=== PATIENT | male | born 1950 | race Caucasian/White ===

== ENCOUNTER → 2020-08-09 | Outpatient (CLI) | payer MEDICARE ==
--- NOTE | 2020-08-09 17:53 | CARDNUC ---
[place] [address] CARDIAC NUCLEAR IMAGING REPORT Name: YOU SWAN Room: [facility]#: [id number] Admission: 08/09/20 Attend Phys: Florence Guaman, Discharge: Date of : 54 Date of Service: 08/09/20 1753 Report #: [id number] THIS REPORT FOR: cc: JAC MORILLO PA-C, MASON PA-C Liston, Michael J. MD [facility] ~ APPROVED REPORT Imaging Protocol: Stress Tc-99m/Rest Tc-99m 1 day Study performed: 08/09/2020 09:38:38 Indication: Abnormal EKG, Chest pain Patient Location: Out-Patient Stress Tech: Maite Potts Stress Nurse: Tricia Garcia RN Ht: 6 ft 2 in Wt: 207 lbs BSA: 2.21 m2 BMI: 26.57 Medical History Medical History: Diabetes, HTN Medications: lisinopril Allergies: nkda Cardiac Risk Factors: Age, HTN, DM, FHX of CAD Exercise History: Physically active Resting Data Rest SPECT myocardial perfusion imaging was performed in supine position 30 minutes following the intravenous injection of 10.4 mCi of Tc-99m Sestamibi. Time of rest injection: 08:25 The images were gated to evaluate regional wall motion and calculate left ventricular ejection fraction. Administration Route: IV Administration Site: Left Wrist Exercise Stress At peak stress, the patient was injected intravenously with 31.2mCi of Tc-99m Sestamibi. Time of stress injection: 10:10 Administration Route: IV Administration Site: Left Wrist Heart Rate at time of stress injection: 138 bpm. Patient continued to exercise for 1 minute([place] [address] CARDIAC NUCLEAR IMAGING REPORT Name: YOU SWAN Room: [facility]#: [id number] Admission: 08/09/20 Attend Phys: Florence Guaman, Discharge: Date of : 54 Date of Service: 08/09/20 1753 Report #: [id number] Gated Stress SPECT was performed 30 minutes after stress injection. The images were gated to evaluate regional wall motion and calculate left ventricular ejection fraction. Prone imaging was performed. Stress Test Details Stress Test: Exercise stress testing was performed using a Donell protocol. HR Max Heart Rate (APMHR): 153 bpm Resting HR: 71 bpm Target HR (85% APMHR): 130 bpm Max HR Achieved: 141 bpm % of APMHR: 92 Recovery HR: 99 bpm BP Resting BP: 161/72 mmHg Max BP: 238/82 mmHg Recovery BP: 177/95 mmHg ECG Resting ECG: Sinus Rhythm Stress ECG: Sinus Tachycardia ST Change: None Arrhythmia: None Recovery ECG: Sinus Rhythm Recovery ST Change: None Recovery Arrhythmia: None Clinical Reason for Termination: Chest pain/Anginal equivalent, Dyspnea, Fatigue Exercise duration: 6 min 29 sec Exercise capacity: 7.79 METs Overall Exercise Capacity for Age: Reduced Functional Aerobic Impairment 92% The patient describes midsternal chest discomfort with standard Donell protocol exercise that resolved with rest. Nurse Comments pt co chest pain at end of test. Resolved with rest Stress ECG Conclusion The baseline twelve-lead EKG shows sinus rhythm without significant ST segment or T wave abnormality. EKGs obtained during and post exercise show sinus rhythm and sinus tachycardia with [address] [place] [address] CARDIAC NUCLEAR IMAGING REPORT Name: YOU SWAN Josefina Room: [facility]#: [id number] Admission: 08/09/20 Attend Phys: Florence Guaman, Discharge: Date of : 54 Date of Service: 08/09/20 1753 Report #: [id number] depression noted in the inferolateral leads that resolves within 30 minutes in recovery. Study Quality Study: Good Artifact: No artifact Study Data At rest, the left ventricular ejection fraction was 67%.. Post stress, the left ventricular ejection was 62%.. Perfusion Perfusion images show a moderate size moderate to severe intensity reversible defect involving the distal anterior wall and apex. Wall Motion Gated images show apical hypokinesis. Nuclear Conclusion ECG Findings: positive for ischemia Clinical Findings: positive for ischemia Nuclear Findings: positive for ischemia Exercise Capacity: Mildly reduced Left Ventricular Function: Preserved Risk Study: high Perfusion images suggest stress-induced ischemia of the distal anterior wall and apex. Global LV systolic function preserved. This is a high risk study. <Conclusion> The baseline twelve-lead EKG shows sinus rhythm without significant ST segment or T wave abnormality. EKGs obtained during and post exercise show sinus rhythm and sinus tachycardia with [address] segment depression noted in the inferolateral leads that resolves within 30 minutes in recovery. <ELECTRONICALLY SIGNED> By: You Patel MD, FACC 08/09/201752 52 54 You Patel MD, FACC /INF
== END ==
LOC: M.NUC 08-08 12:18
PROVIDERS: ATTEND Internal Medicine
DX: R94.31 Abnormal electrocardiogram [ECG] [EKG] (principal); R07.9 Chest pain, unspecified

== ENCOUNTER 2020-08-16 07:42 | Observation (INO) | payer MEDICARE ==
[~2020-08-16] VITALS: Ht 188 cm; Wt 95.3 kg
[2020-08-16] VITALS (13 sets, daily range): BP systolic 127–173; BP diastolic 57–78
[~2020-08-16 07:42] MED LIST: LISINOPRIL10 MG PO
[2020-08-16 08:25] LABS: HEMATOCRIT 44.8 % (42.0-52.0); HEMOGLOBIN 15.2 gm/dL (14.0-18.0); MCH 30.2 pg (26.0-34.0); MCHC 33.9 g/dL (28.0-37.0); MCV 89.2 fL (80.0-100.0); MPV 7.5 fl. (7.2-11.1); RBC 5.02 mil/uL (4.50-6.00); RDW-CV 12.9 % (10.5-14.5); WBC 6.8 thou/uL (4.0-11.0)
[2020-08-16 08:28] LABS: ANION GAP 8 mmol/L (7-16); BUN 20 mg/dL (7-18); CALCIUM 9.2 mg/dL (8.5-10.1); CHLORIDE 104 mmol/L (98-107); CO2 29 mmol/L (21-32); GLUCOSE 155 mg/dL (70-99); POTASSIUM 4.3 mmol/L (3.5-5.1); SODIUM 141 mmol/L (136-145)
[2020-08-16 08:32] LABS: ALBUMIN 3.8 g/dL (3.4-5.0); ALKALINE PHOSPHATASE 85 U/L (46-116); CHOLESTEROL 209 mg/dL (<200); HDL CHOLESTEROL 34 mg/dL (>40); LDL CHOLESTEROL 150 mg/dL (<100); SGOT 18 U/L (15-37); SGPT 25 U/L (30-65); TC:HDL 6.1 Ratio (Not establshd); TOTAL BILIRUBIN 0.7 mg/dL (<0.1-1.0); TOTAL PROTEIN 7.4 g/dL (6.4-8.2); TRIGLYCERIDE 126 mg/dL (<150); VLDL 25 mg/dL (<40)
[2020-08-16 08:34] LABS: SERUM ASSESSMENT Clear
[2020-08-16 08:35] LABS: APTT 24.7 Seconds (25.0-31.3); PROTIME 10.8 Seconds (9.20-11.50)
[2020-08-16] MEDS ORDERED: BAYER CHEWABLE81 MG PO (08:35)
[2020-08-16] MEDS ORDERED: METOPROLOL SUCC25 M1 PO (08:37)
--- NOTE | 2020-08-16 09:37 | EKG ---
[place] [address] ELECTROCARDIOGRAM REPORT Name: ZENAIDA SWAN Room: [facility]#: [id number] Admission: 08/16/20 Attend Phys: Ryan Estevez MD Discharge: Date of : 54 Date of Service: 08/16/20822 Report #: [id number] THIS REPORT FOR: //name// [facility] Test Date: 2020-08-16 Test Time: 08:23:51 Pat Name: ZENAIDA SWAN Department: Room: Gender: Vp Talent Management: : 1950 Requested By: Ryan Estevez Order Number: [id number] Reading MD: Ryan Estevez Measurements Intervals [place] Rate: 74 P: 74 UT: 153 QRS: 31 QRSD: 88 T: 72 QT: 372 QTc: 413 Interpretive Statements Sinus rhythm Abnormal R-wave progression, early transition No previous ECG available for comparison Electronically Signed On 08-16-2020 9:37:47 BRUSH TRIMMING MACHINE SETTER by Ryan Estevez [email or web address] <ELECTRONICALLY SIGNED> By: Ryan Estevez MD, [facility] 08/16/20936 2 2 Ryan Estevez MD, FACC /EPI
--- NOTE | 2020-08-16 13:05 | CARD ---
[address] [address] CARDIAC CATH REPORT Name: ZENAIDA SWAN Room: [address] M.RIno#: [id number] Admission: 08/16/20 Attend Phys: Ryan Estevez MD, F Discharge: Date of : 54 Report #: [id number] THIS REPORT FOR: cc: JAC MORILLO PA-C, MASON PA-C ~ Ryan Estevez MD [facility] APPROVED REPORT Study performed: 08/16/2020 09:21:03 Patient Details Patient Status: Out-Patient Room #: The patient is a 69 year-old male Event Personnel Renato Machado RTR Monitor, Oksana Holland RTR Scrub, Lani Martel RN RN, Ryan Estevez Clamp Remover Procedures Performed Left Heart Cath w/or w/o Coronaries [id number] [facility] [address] w/wo Plasty Single LAD [id number] [address] Place w/wo Plasty Single RCA [id number] Hemostasis with Hemoband Hemostasis w/ Angioseal Indication Unstable angina , Positive stress test Risk Factors Arterial Hypertension, Family History, Hypercholesterolemia Admission/Lab Medications/Medications given during procedure Glycoprotein IllbIlla Inhibitors, Heparin Unfract., Fentanyl IV 25 mcg, Midazolam (Versed) IV 2 mg, Lidocaine Subcut 5 ml, Midazolam (Versed) IV 1 mg, Nitroglycerin IA 200 mcg, Verapamil IA 1.5 mg, Lidocaine Subcut 20 ml, Heparin IV 7000 units, Aggrastat Unknown 9.2 ml, Heparin IV 1000 units, Nitroglycerin IC 200 mcg, Effient PO 60 mg Procedure Narrative The patient was brought electively to the Cardiac Catheterization Laboratory and was prepped and draped in a sterile manner. The right femoral was infiltrated with 2% Lidocaine subcutaneous anesthesia. A [place] 6 FR sheath was inserted into the [place] [address] CARDIAC CATH REPORT Name: ZENAIDA SWAN Room: [address] M.R.#: [id number] Admission: 08/16/20 Attend Phys: Ryan Estevez MD, F Discharge: Date of : 54 Report #: [id number] Coronary angiography was performed using coronary diagnostic catheters. The right coronary system was accessed and visualized with a Diagnostic JR4 6Fr catheter. The left coronary system was accessed and visualized with a Diagnostic JL4 6Fr catheter. The left ventricle was accessed and visualized with a Diagnostic JR4 6Fr catheter. Left ventricular/Aortic Valve gradient assessed via catheter pullback. Closure device was deployed with a 6 Fr Angioseal. There was no hematoma. Attempted procedure from the right radial artery. 6 iranian sheath was placed into the right radial artery. Required Wholey wire to advance beyond the brachial artery. Unable to advance JR4 catheter over the wire. 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 Patient denied any complaints. Decided to proceed with catheterization from the right femoral artery. Sheath was removed and hemostasis was achieved by placing a vascband over the right radial artery. Intraoperative Conscious Sedation Sedation start time: 945 Case end Time: 1102 Fentanyl 50 mcg Versed 4 mg Fluoro Time: 8.9 minutes Dose: DAP [id number] cGycm2 1898.82 mGy Contrast Type and Amount: Visipaque 250 ml Coronary Angiography The patient's coronary anatomy is co- dominant. Diagnostic Cath Left Main 0% stenosis LAD 90% stenosis in the mid LAD after the second diagonal branch. 80% stenosis noted in the distal LAD. Diagonal 2 medium sized vessel with a mid 70% stenosis Circumflex 50% proximal stenosis. 70% stenosis in the distal circumflex prior to the posterolateral branch OM2 60% proximal stenosis and 50% mid stenosis Right Coronary 80% proximal stenosis prior to the right ventricular branch Left Ventriculography Left Ventriculography was not performed. Hemodynamics The aortic pressure is 119/55 mmHg with a mean of 84 mmHg. The left ventricular pressure is 117/10 mmHg with a [place] [address] CARDIAC CATH REPORT Name: ZENAIDA SWAN Room: [address] M.R.#: [id number] Admission: 08/16/20 Attend Phys: Ryan Estevez MD, F Discharge: Date of : 54 Report #: [id number] ventricular end diastolic pressure is 12 mmHg. There was no gradient across the aortic valve upon pullback. Pullback from the left ventricle to the aorta revealed no gradient across the aortic valve. PCI Technique Lesion Anticoagulation was achieved with Heparin. bolus of iv aggrastat given Percutaneous coronary intervention was performed on the mid left anterior descending artery segment. The lesion stenosis prior to intervention was 90% with TRACI 3 flow. A 6F XB LAD 3.5 Guide Catheter was used to engage the Left main ostium. A IG: BMW 190cm Interventional Guidewire was used to cross the lesion. BALLOON DILATION A Balloon catheter Euphora SC 2.5x12 was inserted and inflated up to 10.00atm for 15seconds. Repeat angiography revealed the following post-dilatation results: 60% stenosis. Additional Inflation: 12.00atm for 12seconds. Additional Inflation: 12.00atm for 10seconds. STENT DEPLOYMENT A drug-eluting stent Douglas RX Stent 2.5X38mm was inserted and inflated up to 12.00atm for 17seconds. Repeat angiography revealed the following post-stent deployment results: 0% stenosis. Additional Inflation: 12.00atm for 12seconds. Additional Inflation: 13.00atm for 14seconds. After stent deployment in the mid LAD, there was noted to be an ostial 80% stenosis of a small 3rd diagonal branch that now arose from with the LAD stent suggesting plaque shift, although the patient was asymptomatic and there was TRACI grade III flow. It was therefore decided not to perform PTCA of the ostium of the diagonal branch through the stent struts. Final angiography reveals 0 % stenosis with TRACI 3 flow. PCI Technique Lesion 2 Percutaneous Coronary Intervention was performed on the distal left anterior descending artery segment. Percutaneous coronary intervention was performed on the distal left anterior descending artery segment. The lesion stenosis prior to intervention was 80% with TRACI 3 flow. A 6F XB LAD 3.5 Guide Catheter was used to engage the Left main ostium. A IG: BMW 190cm Interventional Guidewire was used to cross the lesion. Stent Deployment A drug-eluting stent Steven RX Stent 2.0X22mm was inserted and inflated up to 16.00atm for 17seconds. Repeat angiography revealed [facility] [address] [place] [address] CARDIAC CATH REPORT Name: ZENAIDA SWAN Room: [address]#: [id number] Admission: 08/16/20 Attend Phys: Ryan Estevez MD, F Discharge: Date of : 54 Report #: [id number] the following post-stent deployment results: 0% stenosis. Additional Inflation: 12.00atm for 12seconds. Additional Inflation: 18.00atm for 11seconds. At the end of the procedure, there was noted to be a small distance of three affiliated LAD between the 2 stents. Final angiography reveals 0 % stenosis with TRACI 3 flow. PCI Technique Lesion 3 Percutaneous Coronary Intervention was performed on the proximal right coronary artery. Percutaneous coronary intervention was performed on the proximal right coronary artery. The lesion stenosis prior to intervention was 80% with TRACI 3 flow. A 6FR JCR 4 100CM Guide Catheter was used to engage the Right ostium. A IG: [place] 190cm Interventional Guidewire was used to cross the lesion. Balloon Dilation A Balloon catheter Euphora SC 2.5x12 was inserted and inflated up to 18.00atm for 15seconds. Repeat angiography revealed the following post-dilatation results: 40% stenosis. Stent Deployment A drug-eluting stent Douglas RX Stent 3.0X22mm was inserted and inflated up to 16.00atm for 16seconds. Repeat angiography revealed the following post-stent deployment results: 0% stenosis. Additional Inflation: 20.00atm for 12seconds. Final angiography reveals 0 % stenosis with TRACI 3 flow. Conclusion 1. 90% stenosis of the mid LAD and 80% stenosis of the distal LAD 2. 80% stenosis of the proximal RCA 3. successful placement of 2 drug eluting stents in the LAD, and 1 in the RCA Recommendations Cardiac Rehabilitation Referral Aggressive Medical Therapy Medications Administered Prasugrel <ELECTRONICALLY SIGNED> By: Ryan Estevez MD, [facility] 08/16/20 1305 1305 1305Dalaurie Estevez MD, [facility] /INF
--- NOTE | 2020-08-16 13:33 | EKG ---
[place] [address] ELECTROCARDIOGRAM REPORT Name: ZENAIDA SWAN Room: [address]R.#: [id number] Admission: 08/16/20 Attend Phys: Ryan Estevez MD Discharge: Date of : 54 Date of Service: 08/16/20 1325 Report #: [id number] THIS REPORT FOR: //name// [facility] Test Date: 2020-08-16 Test Time: 13:25:00 Pat Name: ZENAIDA SWAN Department: Room: [address] Gender: M Pile Driver Operator: CS : 1950 Requested By: Ryan Estevez Order Number: [id number] Rogelio MD: Ryan Estevez Measurements Intervals [place] Rate: 63 P: 70 SD: 163 QRS: 53 QRSD: 91 T: 91 QT: 378 QTc: 387 Interpretive Statements Sinus rhythm Nonspecific T abnormalities, lateral leads Compared to ECG 08/16/2020 08:23:51 no change Electronically Signed On 08-16-2020 13:32:55 DATA ENTRY MACHINE OPERATOR by Ryan Estevez [email or web address] <ELECTRONICALLY SIGNED> By: Ryan Estevez MD, [facility] 08/16/20 1332 1325 1325 Ryan Estevez MD, [facility] /EPI
[2020-08-17 00:16] VITALS: BP 129/56
[2020-08-17 04:36] VITALS: BP 174/70
[2020-08-17 07:43] VITALS: BP 164/85
[2020-08-17 10:24] VITALS: BP 164/85
[2020-08-17] MEDS ORDERED: EFFIENT10 MG PO (10:46)
[2020-08-17] MEDS ORDERED: ATORVASTATIN CA20 MG PO (10:49)
[2020-08-17] MEDS ORDERED: NITROGLYCERIN0.4 MG SUBLING (10:51)
[2020-08-17 12:46] VITALS: BP 164/85
--- NOTE | 2020-08-19 08:24 | D ---
[address] [address] DISCHARGE SUMMARY Name: ZENAIDA SWAN Room: [address] Luis Stiles#: [id number] Admission: 08/16/20 Attend Phys: Ryan Estevez MD, F Discharge: 08/17/20 Date of : 54 Report #: [id number] THIS REPORT FOR: cc: JAC BATES PA-C, MASON PA-C ~ Ryan Estevez MD [facility] DATE OF SERVICE: 08/17/2020 DISCHARGE DIAGNOSES: 1. Crescendo angina. 2. Coronary artery disease. 3. Hyperlipidemia. 4. Glucose intolerance. 5. Hypertension. PROCEDURES: Left heart catheterization with placement of 2 drug-eluting stents in the LAD and 1 in the right coronary artery via the femoral approach. HISTORY OF PRESENT ILLNESS: The patient is a 69-year-old single white male who was brought to the outpatient department to undergo cardiac catheterization. The patient has no previous history of heart disease. He previously was on no medications. Recently, he complained of when he exerts himself, he developed tightness in his chest and he has to stop. It does make him short of breath. It is relieved with rest. He was seen in the office and started on aspirin and metoprolol. His blood pressure was elevated, he was started on lisinopril as well. He was referred to my partner, Dr. Alexander Guaman. Lipid profile showed cholesterol 194, HDL 34, triglycerides 213, LDL 117. Dr. Guaman recommended a nuclear stress test that was performed on 08/09. The nuclear stress test showed severe reversible defect of the distal anterior wall and apex. Dr. Guaman recommended cardiac catheterization. The patient was brought to [place] this time for cardiac catheterization. PAST MEDICAL HISTORY: Otherwise significant for finger surgery, nose surgery, tonsillectomy. MEDICATIONS: He appears on no medications. He now takes metoprolol, lisinopril, and aspirin a day. ALLERGIES: He has no known drug allergies. PHYSICAL EXAMINATION: VITAL SIGNS: His blood pressure was 130/60, pulse is 70, he was afebrile. HEENT: He was anicteric. Conjunctivae pink. Mucous membranes moist. NECK: Veins were nondistended. No carotid bruits. CHEST: Clear [place] [address] DISCHARGE SUMMARY Name: ZENAIDA SWAN Room: [address] Luis Stiles#: [id number] Admission: 08/16/20 Attend Phys: Ryna Estevez MD, F Discharge: 08/17/20 Date of : 54 Report #: [id number] CARDIOVASCULAR: Regular rate and rhythm. ABDOMEN: Soft. EXTREMITIES: Had no edema. SKIN: Cool and dry. NEUROLOGIC: Nonfocal. His workup, he had lab work obtained that showed a sodium 141, creatinine 1.0. His fasting glucose is 155. His cholesterol was 209, triglyceride 126, HDL 34, LDL 150. White blood cell count 6.8 and hematocrit 44.8. COVID antigen stat test was negative. HOSPITAL COURSE: The patient was brought to the outpatient department. I attempted cardiac catheterization from the right radial artery. I was able to place a sheath in the right radial artery with no complications. However, I was unable to advance the wire beyond the brachial artery. Arteriogram showed patency of the radial artery, although it was tortuous. I then attempted to advance a Wholey wire through the diagnostic catheter. I could not advance the wire beyond the brachial artery. The wire was removed and arteriogram showed what appeared to represent extravasation of contrast suggestive of dissection. The patient had stable vital signs and he denied any arm discomfort. It was decided to finish the procedure from the right femoral artery. The sheath was left in place in the right radial artery. A 6-Malay sheath was placed into the right femoral artery. I then performed cardiac catheterization. The patient was noted to have severe multivessel coronary artery disease with a 90% narrowing of the mid LAD, 80% narrowing of the distal LAD, 80% narrowing of the proximal right coronary artery. In addition, there is diffuse disease in the circumflex artery including 50% proximal stenosis, 70% distal stenosis prior to the distal posterolateral branch. There was a second diagonal branch of the LAD that had a mid 70% stenosis. The patient was noted to be codominant. Ventriculogram was not performed. He was then given heparin and Aggrastat. I then placed 2 drug-eluting stents in the mid and distal LAD and 1 drug-eluting stent in the proximal right coronary artery, which he tolerated well. He was loaded with prasugrel 60 mg. The sheath was removed and exchanged for an Angio-Seal. The following day, he was sore in the right groin and there was a hematoma. He had no complaints of the right arm and there was no hematoma in the right wrist. Prior to discharge, the patient was ambulating, had no further complaints. He was discharged on aspirin 81 mg a day, Effient 10 mg a day which ____ take for 1 year. He was to resume his metoprolol and lisinopril. He was started on Lipitor 40 mg a day. I recommended he follow up with Dr. Guaman in the Cardiology Clinic in 1 month. I also recommended he follow up with Jac Bates, his physician assistant grocery and would consider starting Jardiance for his diabetes and coronary artery disease. His prognosis is guarded from a cardiac standpoint due to his severe diffuse coronary artery disease. He was to contact my office if he had recurrent chest pain, bleeding or shortness of breath. I recommended he start gradually increase his activity. 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 I recommended he start a diabetic diet and maintain tight control of his high blood pressure. <ELECTRONICALLY SIGNED> By: Ryan Estevez MD, FACC 08/19/20 0824 1147 1221Dlorrie Estevez MD, FAC /nt
== END 2020-08-17 12:45 | disposition home or self-care (01) ==
LOC: M.CL 07:42 → M.TBA-CV 10:19 → M.2W 10:19
PROVIDERS: ADMIT Internal Medicine Cardiovascular Disease; ATTEND Internal Medicine Cardiovascular Disease
DX: I25.10 Atherosclerotic heart disease of native coronary artery without angina pectoris (principal); I10 Essential (primary) hypertension; E78.00 Pure hypercholesterolemia, unspecified; Z79.82 Long term (current) use of aspirin; Z79.899 Other long term (current) drug therapy

== ENCOUNTER 2020-09-06 07:46 | Observation (INO) | payer MEDICARE ==
[2020-09-06] VITALS (12 sets, daily range): BP systolic 110–169; BP diastolic 59–76
[~2020-09-06] VITALS: Ht 188 cm; Wt 87.1 kg
--- NOTE | ~2020-09-06 | H ---
[address] [address] HISTORY AND PHYSICAL Name: BENYZENAIDA Room: [address] Luis Stiles#: [id number] Admission: 09/06/20 Attend Phys: Bonilla Marie MD, Discharge: 09/07/20 Date of : 54 Report #: [id number] THIS REPORT FOR: cc: JAC MORILLO PA-C, MASON PA-C ~ [facility],Medical Records Staff Please refer to the History and Physical performed in the physician's office. By: [id number] Records Staff [facility] /YANIV
--- NOTE | ~2020-09-06 | D ---
[address] [address] DISCHARGE SUMMARY Name: ZENAIDA SWAN Room: [address] Luis Stiles#: [id number] Admission: 09/06/20 Attend Phys: Bonilla Marie MD, Discharge: Date of : 54 Report #: [id number] THIS REPORT FOR: cc: JAC MORILLO PA-C, MASON PA-C ~ Bonilla Marie MD [facility] The patient to be discharge on 09/07/2020. FINAL DISCHARGE DIAGNOSES: 1. Unstable angina. 2. Coronary artery disease. 3. Status post recent myocardial infarction. 4. Status post PTCA with stenting. 5. Hypercholesterolemia. PROCEDURES: On 09/06/2020 -- left heart catheterization, selective coronary arteriography and percutaneous coronary intervention with stenting of the prominent first marginal branch of the circumflex. The patient is a very pleasant 69-year-old man with hypercholesterolemia and hypertension. He presented approximately 3 weeks ago with acute coronary syndrome and underwent PCI to the proximal and mid LAD as well as the mid right coronary artery. He also had a moderately severe circumflex lesion noted. He represented to the office and saw Dr. Guaman when he had recurrent chest discomfort compatible with recurrent angina. In this context, he underwent cardiac catheterization on 09/06/2020, which revealed widely patent proximal and mid LAD stents. There was also widely patent mid right coronary stent. He had 80% stenosis of the proximal portion of prominent first marginal branch of the circumflex. I deployed two Steven drug-eluting stents, one 2.25 x 8, the other 2.5 x 8 to 12-15 atmospheres with 0% residual narrowing and TRACI 3 flow of the distal vessel. The patient did well post-procedurally with good hemostasis at the right femoral site of catheterization. He ambulated in the hallways without difficulty. DISCHARGE MEDICATIONS: He was discharged home on dual antiplatelet therapy constituted aspirin 81 mg daily and Effient or prasugrel 10 mg daily. He was continued on atorvastatin, lisinopril and Toprol-XL as previously utilized. He is scheduled to return to see Dr. Guaman in 4-6 [place] [address] DISCHARGE SUMMARY Name: ZENAIDA SWAN Room: [address] Luis Stiles#: [id number] Admission: 09/06/20 Attend Phys: Bonilla Marie MD, Discharge: Date of : 54 Report #: [id number] Therefore, the patient is discharged to home in stable condition with followup with Dr. Guaman in 4-6 weeks on the medications described above. By: 1251 [id number] Marie MD, FACC /nt
--- NOTE | ~2020-09-06 | D ---
[address] [address] DISCHARGE SUMMARY Name: ZENAIDA SWAN Room: [address] Luis Stiles#: [id number] Admission: 09/06/20 Attend Phys: Bonilla Marie MD, Discharge: 09/07/20 Date of : 54 Report #: [id number] THIS REPORT FOR: cc: JAC MORILOL PA-C, MASON PA-C ~ Bonilla Marie MD [facility] DATE OF SERVICE: 09/07/2020 FINAL DISCHARGE DIAGNOSES: 1. Unstable angina. 2. Coronary artery disease. 3. Status post recent acute coronary syndrome, interrupted by PCI to the LAD and right coronary artery. 4. Status post PCI to the circumflex on 09/06/2020. 5. Hypertension. 6. Hyperlipidemia. PROCEDURES: 09/06/2020 -- left heart catheterization, selective coronary arteriography and percutaneous deployment of sequential drug-eluting stents at the site of 80% stenosis in the first marginal branch of the circumflex. The patient is a very pleasant 69-year-old male who presented 3 weeks ago with acute coronary syndrome. He underwent PCI by Dr. Estevez with stenting of the proximal and mid to distal LAD as well as the mid right coronary artery. There was also moderately severe circumflex lesion not approached in that setting. The patient did well early post discharge, but presented to Dr. Guaman with recurrent chest pain compatible with unstable angina. In that context, I performed recatheterization on 09/06/2020, which revealed widely patent stents in the proximal and mid to distal LAD with no significant stenosis in that region. The mid right coronary stent was widely patent. There was 80% stenosis in the first marginal branch of the nondominant circumflex. Given this data, I deployed 2 drug-eluting stents, a 2.0 x 8 and 2.5 x 8 [place] drug-eluting stents in the first marginal branch of the circumflex with 0% residual narrowing and TRACI-3 flow of the distal vessel. Troponin tamie minimally to 0.65. Additional lab on 09/07 revealed sodium 140, potassium 4.0, BUN 16, creatinine 1.0. Hemoglobin 14.2, white blood cell count 7900 with 223,000 platelets. He did well post-procedurally and ambulated in the hallways without difficulty. There was good hemostasis at the right femoral site of catheterization. DISCHARGE MEDICATIONS: The patient was discharged to home on the following medications: Lisinopril 10 mg daily, aspirin 81 mg b.i.d., [place] [address] DISCHARGE SUMMARY Name: ZENAIDA SWAN Room: [address] Luis Stiles#: [id number] Admission: 09/06/20 Attend Phys: Bonilla Marie MD, Discharge: 09/07/20 Date of : 54 Report #: [id number] 25 mg b.i.d., prasugrel or Effient 10 mg daily, atorvastatin 40 mg at bedtime, and p.r.n. sublingual nitroglycerin. The patient is scheduled to return to see Dr. Guaman in 4-6 weeks. Thus, he is discharged to home in stable condition on the aforementioned medications with followup as iterated above. By: 1057 1118Bonilla Marie MD, FACC /nt
[~2020-09-06 07:46] MED LIST changes: +ATORVASTATIN CA20 MG PO; +BAYER CHEWABLE81 MG PO; +EFFIENT10 MG PO; +METOPROLOL SUCC25 M1 PO; +NITROGLYCERIN0.4 MG SUBLING
[2020-09-06 08:37] LABS: HEMATOCRIT 44.4 % (42.0-52.0); MCH 29.6 pg (26.0-34.0); MCHC 33.8 g/dL (28.0-37.0); MCV 87.6 fL (80.0-100.0); MPV 7.5 fl. (7.2-11.1); RBC 5.07 mil/uL (4.50-6.00); RDW-CV 12.8 % (10.5-14.5); WBC 7.8 thou/uL (4.0-11.0)
[2020-09-06 08:50] LABS: ANION GAP 10 mmol/L (7-16); BUN 19 mg/dL (7-18); CALCIUM 9.2 mg/dL (8.5-10.1); CHLORIDE 104 mmol/L (98-107); CO2 26 mmol/L (21-32); CREATININE 1.1 mg/dL (0.6-1.3); GLUCOSE 127 mg/dL (70-99); POTASSIUM 4.2 mmol/L (3.5-5.1); SODIUM 140 mmol/L (136-145)
[2020-09-06 08:54] LABS: ALBUMIN 3.8 g/dL (3.4-5.0); ALKALINE PHOSPHATASE 117 U/L (46-116); APTT 25.8 Seconds (25.0-31.3); CHOLESTEROL 117 mg/dL (<200); HDL CHOLESTEROL 34 mg/dL (>40); LDL CHOLESTEROL 67 mg/dL (<100); PROTIME 10.5 Seconds (9.20-11.50); SGOT 23 U/L (15-37); SGPT 26 U/L (30-65); TC:HDL 3.4 Ratio (Not establshd); TOTAL BILIRUBIN 0.9 mg/dL (<0.1-1.0); TOTAL PROTEIN 7.8 g/dL (6.4-8.2); TRIGLYCERIDE 83 mg/dL (<150); VLDL 17 mg/dL (<40)
[2020-09-06 08:55] LABS: SERUM ASSESSMENT Clear
--- NOTE | 2020-09-06 10:52 | CARD ---
[address] [address] CARDIAC CATH REPORT Name: ZENAIDA SWAN Room: [address] Luis Stiles#: [id number] Admission: 09/06/20 Attend Phys: Bnoilla Marie MD, Discharge: Date of : 54 Report #: [id number] THIS REPORT FOR: cc: JAC MORILLO PA-C, MASON PA-C ~ Bonilla Marie MD [facility] APPROVED REPORT Study performed: 09/06/2020 09:27:10 Patient Details Patient Status: Out-Patient Room #: The patient is a 69 year-old male Event Personnel Renato Machado RTR Monitor, Carlos A Wheeler Subedi, Sujita RN RN, Bonilla Marie Direct Care Supervisor Procedures Performed Left Heart Cath w/or w/o Coronaries [id number] [facility] Place w/wo Plasty Addl BR OM 1 [id number] DESADDL Hemostasis w/ Angioseal Indication Unstable angina Risk Factors Hypercholesterolemia Previous Procedures/Diagnoses Previous PCI, Previous OR Admission/Lab Medications/Medications given during procedure Fentanyl IV 50 mcg, Midazolam (Versed) IV 2 mg, Lidocaine Subcut 20 ml, Fentanyl IV 25 mcg, Midazolam (Versed) IV 1 mg, Angiomax IV 13 ml, Angiomax IV 30.48 ml per hr, Effient PO 30 mg, Aspirin PO 81 mg Procedure Narrative The patient was brought electively to the Cardiac Catheterization Laboratory and was prepped and draped in a sterile manner. The right femoral was infiltrated with 2% Lidocaine subcutaneous anesthesia. IV conscious sedation was used throughout procedure with appropriate monitoring and was performed in the [place] [address] CARDIAC CATH REPORT Name: BENYZENAIDA Josefina Room: [address] Luis Stiles#: [id number] Admission: 09/06/20 Attend Phys: Bonilla Marie MD, Discharge: Date of : 54 Report #: [id number] who was an independent trained observer other than the physician performing the procedure. A Ola 6 FR sheath was inserted into the right femoral artery. Coronary angiography was performed using coronary diagnostic catheters. The right coronary system was accessed and visualized with a Diagnostic JR4 6Fr catheter. The left coronary system was accessed and visualized with a Diagnostic JL4 6Fr catheter. The left ventricle was accessed and visualized with a Diagnostic Pigtail 6Fr catheter. Left ventricular/Aortic Valve gradient assessed via catheter pullback. Pre-demployment femoral angiogram was performed . Closure device was deployed with a 6 Fr Angioseal. The patient tolerated the procedure well and there were no complications associated with the procedure. There was no hematoma. Intraoperative Conscious Sedation Sedation start time: 912 Case end Time: 957 Fentanyl 75 mcg Versed 3 mg Fluoro Time: 9.7 minutes Dose: DAP 297335 cGycm2 1685.42 mGy Contrast Type and Amount: Visipaque 240 ml Diagnostic Cath Left Main 0% narrowing LAD 30% proximal LAD narrowing with widely patent proximal and mid vessel stents with 50% distal LAD narrowing Circumflex 30% proximal narrowing with 80% stenosis of the proximal portion of the prominent first marginal branch of the circumflex Right Coronary Dominant vessel with 30% proximal narrowing and a widely patent mid vessel stent Left Ventriculography Left Ventriculography was not performed. Hemodynamics The aortic pressure is 130/43 mmHg with a mean of 84 mmHg. The left ventricular pressure is 124/0 mmHg with a mean of mmHg. The left ventricular end diastolic pressure is 6 mmHg. There was no gradient across the aortic valve upon pullback. PCI Technique Lesion Anticoagulation was achieved with Angiomax. Patient was preloaded with Angiomax IV 13 ml. Perc[place] [address] CARDIAC CATH REPORT Name: ZENAIDA SWAN Room: [address] Luis Stiles#: [id number] Admission: 09/06/20 Attend Phys: Bonilla Marie MD, Discharge: Date of : 54 Report #: [id number] performed on the first obtuse marginal branch segment. The lesion stenosis prior to intervention was 80% with TRACI 3 flow. A 6F XB LAD 3.5 Guide Catheter was used to engage the Left ostium. A IG: BMW 190cm Interventional Guidewire was used to cross the lesion. STENT DEPLOYMENT A drug-eluting stent Steven RX Stent 2.0X8mm was inserted and inflated up to 12.00atm for 15seconds. Additional Inflation: 16.00atm for 10seconds. Additional Inflation: 20.00atm for 11seconds. A Drug Eluting Stent [place] RX Stent 2.5X8mm was inserted and inflated up to 10.00 for 10 seconds. Addition Inflation: 12.00 annabella for 7 seconds. Additional Inflation: 14.00 annabella for 9 seconds Final angiography reveals 0 % stenosis with TRACI 3 flow. Conclusion 1. Significant coronary artery disease characterized by the following: A 30% proximal LAD narrowing with widely patent proximal and mid vessel stents with 50% distal LAD narrowing B 30% proximal circumflex narrowing with 80% stenosis of the proximal portion of the prominent first marginal branch C dominant right coronary artery with 30% proximal narrowing and a widely patent mid vessel stent 2. Normal left-sided hemodynamic study 3. Successful PCI with deployment of sequential drug-eluting stents at the site of 80% first marginal stenosis in the nondominant circumflex with 0% residual narrowing and TRACI-3 flow to the distal vessel Recommendations Cardiac Risk Reduction Program Aggressive Medical Therapy Medications Administered Aspirin (any) [place] [address] CARDIAC CATH REPORT Name: ZENAIDA SWAN Room: 160-[address] [facility] Luis Stiles#: [id number] Admission: 09/06/20 Attend Phys: Bonilla Marie MD, Discharge: Date of : 54 Report #: [id number] Diagnostic Cath Approved by: Bonilla Marie MD Date/Time: 09/06/2020 10:48:31 <ELECTRONICALLY SIGNED> By: Bonilla Marie MD, [facility] 09/06/201050 50 50Jomickie Marie MD, [facility] /INF
--- NOTE | 2020-09-06 10:57 | EKG ---
[place] [address] ELECTROCARDIOGRAM REPORT Name: ZENAIDA SWAN Room: [address]R.#: [id number] Admission: 09/06/20 Attend Phys: Lazarus Garvin Discharge: Date of : 54 Date of Service: 09/06/20 0837 Report #: [id number] THIS REPORT FOR: //name// [facility] Test Date: 2020-09-06 Test Time: 08:37:48 Pat Name: ZENAIDA SWAN Department: Room: [facility] Gender: M Press Breaker: : 1950 Requested By: Bonilla Marie Order Number: [id number] Rogelio MD: Bonilla Marie Measurements Intervals [place] Rate: 67 P: 77 [place]: 156 QRS: 43 QRSD: 87 T: 66 QT: 384 QTc: 406 Interpretive Statements Sinus rhythm Compared to ECG 08/16/2020 13:25:00 T-wave abnormality no longer present Electronically Signed On 09-06-2020 10:56:54 CDT by Bonilla Marie [email or web address] <ELECTRONICALLY SIGNED> By: Bonilla Marie MD, [facility] 09/06/20 1056 0837 0837 Bonilla Marie MD, [facility] /EPI
--- NOTE | 2020-09-06 10:59 | EKG ---
[place] [address] ELECTROCARDIOGRAM REPORT Name: ZENAIDA SWAN Room: [address]R.#: [id number] Admission: 09/06/20 Attend Phys: Lazarus Garvin Discharge: Date of : 54 Date of Service: 09/06/20 1042 Report #: [id number] THIS REPORT FOR: //name// [facility] Test Date: 2020-09-06 Test Time: 10:42:22 Pat Name: ZENAIDA SWAN Department: Room: [facility] Gender: M Merchandising Director: AMRIK : 1950 Requested By: Bonilla Marie Order Number: [id number] Rogelio MD: Bonilla Marie Measurements Intervals [place] Rate: 52 P: 62 [place]: 155 QRS: 23 QRSD: 91 T: 69 QT: 412 QTc: 384 Interpretive Statements Sinus rhythm Compared to ECG 09/06/2020 08:37:48 No significant changes Electronically Signed On 09-06-2020 10:59:47 CDT by Bonilla Marie [email or web address] <ELECTRONICALLY SIGNED> By: Bonilla Marie MD, [facility] 09/06/20 1059 1042 1042 Bonilla Marie MD, [facility] /EPI
--- NOTE | 2020-09-06 13:02 | NUR ---
PT ORIENTED TO ROOM AND UNIT, BED LOW AND LOCKED, SIDE RAILS UPX3, CALL LIGHT IN REACH, TELE APPLIED. RIGHT GROIN CDI WITH NO HEMATOMA. WILL CONTINUE TO ASSESS.
--- NOTE | 2020-09-06 18:24 | NUR ---
PT OFF BED REST AT 1600 TODAY. RIGHT GROIN ASSESSED BY MYSELF AND DR. RED, IS CDI WITH NO HEMTOMA.
[2020-09-07] VITALS: BP 132/53
[2020-09-07 04:00] VITALS: BP 144/60
[2020-09-07 04:48] LABS: HEMATOCRIT 40.9 % (42.0-52.0); HEMOGLOBIN 14.2 gm/dL (14.0-18.0); MCH 30.3 pg (26.0-34.0); MCHC 34.8 g/dL (28.0-37.0); MCV 87.1 fL (80.0-100.0); RBC 4.7 mil/uL (4.50-6.00); RDW-CV 12.7 % (10.5-14.5); WBC 7.9 thou/uL (4.0-11.0)
[2020-09-07 04:56] LABS: ALBUMIN 3.3 g/dL (3.4-5.0); CALCIUM 8.8 mg/dL (8.5-10.1); TOTAL BILIRUBIN 0.7 mg/dL (<0.1-1.0); TOTAL PROTEIN 6.9 g/dL (6.4-8.2)
[2020-09-07 05:02] LABS: TROPONIN-I LEVEL 0.65 ng/mL (<0.06)
--- NOTE | 2020-09-07 07:15 | NUR ---
CHANGE OF SHIFT REPORT GIVEN PATIENT SEEN AT BEDSIDE, IN BED ASLEEP ASSUMED PATIENT CARE
[2020-09-07 08:00] VITALS: BP 121/57
[2020-09-07 11:01] VITALS: BP 121/57
--- NOTE | 2020-09-07 11:04 | NUR ---
discharge to home all dc instructions given, acknowledged, copies given iv and heart monitor removed personal belongings returned patient taken out via [facility] good condition to waiting car
--- NOTE | 2020-09-08 13:54 | EKG ---
[place] [address] ELECTROCARDIOGRAM REPORT Name: YOU SWAN Room: [address]#: [id number] Admission: 09/06/20 Attend Phys: Lazarus Garvin Discharge: 09/07/20 Date of : 54 Date of Service: 09/07/20 0519 Report #: [id number] THIS REPORT FOR: //name// [facility] Test Date: 2020-09-07 Test Time: 05:19:28 Pat Name: YOU SWAN Department: Room: [facility] Gender: M Associate Relations Specialist: KRUPA : 1950 Requested By: Bonilla Marie Order Number: [id number] Rogelio MD: You Patel Measurements Intervals [place] Rate: 56 P: 71 [place]: 147 QRS: 22 QRSD: 90 T: 64 QT: 423 QTc: 409 Interpretive Statements Sinus rhythm Compared to ECG 09/06/2020 10:42:22 No significant changes Electronically Signed On 09-08-2020 13:54:44 CDT by You Patel [email or web address] <ELECTRONICALLY SIGNED> By: You Patel MD, FACC 09/08/20 1354 0519 0519 You Patel MD, [facility] /EPI
--- NOTE | 2020-09-09 11:11 | NUR ---
Nutrition: Consult received for pt requesting RD. Pt has been discharged home. Called him this morning at [phone]. He asked question about effects of carbonation on the body - we discuseed and all questions answered. He was given heart healthy info before discharge and denied any questions about that today. Encouraged him to call RD with any further questions about diet.
== END 2020-09-07 11:05 | disposition home or self-care (01) ==
LOC: M.CL 07:46 → M.TBA-CV 10:15 → M.2W 13:18
PROVIDERS: ADMIT Internal Medicine; ATTEND Internal Medicine
DX: I25.110 Atherosclerotic heart disease of native coronary artery with unstable angina pectoris (principal); I25.2 Old myocardial infarction; E78.00 Pure hypercholesterolemia, unspecified